=== PATIENT | female | born 1980 | race Caucasian/White ===

== ENCOUNTER 2017-11-26 05:15 | Emergency (ER) | payer OTHER, BC ==
[2017-11-26] MEDS: HYDROmorphONE 1 MG/ML SYG IV ×2 (06:36→09:04)
[2017-11-26] MEDS: SOD CHLORIDE 0.9% 1,000 ML IV ×2 (06:38→06:52)
[2017-11-26] MEDS: ONDANSETRON 4 MG INJ IV ×2 (06:38→06:52)
[2017-11-26] MEDS: morphine 4 MG/ML VIAL IV (06:38)
[2017-11-26 06:52] LABS: ADD MAN DIFF? NO
[2017-11-26 06:57] LABS: BASOPHILS % 0.2 % (0.0-2.0); EOSINOPHILS # 0.1 10^3/ul (0.0-0.5); EOSINOPHILS % 0.6 % (0.0-7.0); HEMOGLOBIN 13.8 g/dl (12.0-16.0); LYMPHOCYTES # 3.4 10^3/ul (0.8-2.9); LYMPHOCYTES % 28.5 % (15.0-51.0); MEAN CORPUSCULAR HEMOGLOBIN 31.2 pg (29.0-33.0); MEAN CORPUSCULAR HGB CONC 32.1 g/dl (32.0-37.0); MEAN CORPUSCULAR VOLUME 97.1 fl (82.0-101.0); MEAN PLATELET VOLUME 10.4 fl (7.4-10.4); MONOCYTE # 0.4 10^3/ul (0.3-0.9); NEUTROPHIL # 8.1 10^3/ul (1.6-7.5); NEUTROPHILS % 67.3 % (39.0-77.0); PLATELET COUNT 317 10^3/UL (140-415); RED BLOOD COUNT 4.43 10^6/ul (4.20-5.40); RED CELL DISTRIBUTION WIDTH 12.8 % (11.5-14.5)
[2017-11-26 07:19] LABS: ALANINE AMINOTRANSFERASE 30 IU/L (13-69); ALBUMIN 3.9 g/dl (3.3-4.9); ALBUMIN/GLOBULIN RATIO 1.34; ALKALINE PHOSPHATASE 68 IU/L (42-121); ANION GAP 8 (8-16); ASPARTATE AMINO TRANSFERASE 26 IU/L (15-46); BILIRUBIN,INDIRECT 0.4 mg/dl (0-1.1); BILIRUBIN,TOTAL 0.4 mg/dl (0.2-1.3); BLOOD UREA NITROGEN 3 mg/dl (7-20); CARBON DIOXIDE 30 mmol/L (21-31); CHLORIDE 105 mmol/L (97-110); CREATININE 0.47 mg/dl (0.44-1.00); GLUCOSE 153 mg/dl (70-220); LIPASE 55 U/L (23-300); POTASSIUM 4.1 mmol/L (3.5-5.1); SODIUM 139 mmol/L (135-144); TOTAL PROTEIN 6.8 g/dl (6.1-8.1)
== END 2017-11-26 09:40 | disposition home or self-care (01) ==
LOC: E/R 05:15
DX: K80.20 Calculus of gallbladder without cholecystitis without obstruction (principal); F17.210 Nicotine dependence, cigarettes, uncomplicated; Z85.41 Personal history of malignant neoplasm of cervix uteri
CPT/HCPCS: 36415; 76705; 80053; 81025; 83690; 85025; 96374; 96375; 99285-25

== ENCOUNTER 2018-02-11 09:25 | Emergency (ER) | payer OTHER ==
[2018-02-11 10:09] LABS: URINE BLOOD (Dip) POC Negative (NEGATIVE); URINE GLUCOSE (Dip) POC Negative (NEGATIVE); URINE KETONES (Dip) POC Negative (NEGATIVE); URINE LEUKOCYTE EST (Dip) POC Negative (NEGATIVE); URINE NITRITE (Dip) POC Negative (NEGATIVE); URINE TOTAL PROTEIN POC Negative (NEGATIVE)
[2018-02-11 10:09] LABS: URINE PH (Dip) POC 5.5 (5.0-8.5)
[2018-02-11] MEDS: ACETAMINOPHEN 325 MG TAB PO (10:11)
[2018-02-11] MEDS: SOD CHLORIDE 0.9% 1,000 ML IV (10:12)
[2018-02-11 10:23] LABS: ADD MAN DIFF? NO
[2018-02-11 10:34] LABS: BASOPHILS % 0.2 % (0.0-2.0); EOSINOPHILS # 0.1 10^3/ul (0.0-0.5); HEMATOCRIT 39.7 % (37.0-47.0); LYMPHOCYTES # 3.1 10^3/ul (0.8-2.9); MEAN CORPUSCULAR HEMOGLOBIN 31.6 pg (29.0-33.0); MEAN CORPUSCULAR HGB CONC 32.7 g/dl (32.0-37.0); MEAN CORPUSCULAR VOLUME 96.6 fl (82.0-101.0); MEAN PLATELET VOLUME 10.6 fl (7.4-10.4); MONOCYTE # 0.4 10^3/ul (0.3-0.9); MONOCYTES % 3.5 % (0.0-11.0); NEUTROPHIL # 8.7 10^3/ul (1.6-7.5); NEUTROPHILS % 69.7 % (39.0-77.0); PLATELET COUNT 347 10^3/UL (140-415); RED BLOOD COUNT 4.11 10^6/ul (4.20-5.40); RED CELL DISTRIBUTION WIDTH 12.3 % (11.5-14.5)
[2018-02-11 10:34] LABS: WHITE BLOOD COUNT 12.4 10^3/ul (4.8-10.8)
[2018-02-11 10:58] LABS: ALANINE AMINOTRANSFERASE 19 IU/L (13-69); ALBUMIN 3.5 g/dl (3.3-4.9); ALKALINE PHOSPHATASE 64 IU/L (42-121); ANION GAP 11 (8-16); ASPARTATE AMINO TRANSFERASE 20 IU/L (15-46); BILIRUBIN,INDIRECT 0.2 mg/dl (0-1.1); BILIRUBIN,TOTAL 0.2 mg/dl (0.2-1.3); BLOOD UREA NITROGEN 10 mg/dl (7-20); CALCIUM 9.8 mg/dl (8.4-10.2); CARBON DIOXIDE 28 mmol/L (21-31); CHLORIDE 102 mmol/L (97-110); CREATININE 0.45 mg/dl (0.44-1.00); GLUCOSE 114 mg/dl (70-220); POTASSIUM 3.9 mmol/L (3.5-5.1); SODIUM 137 mmol/L (135-144)
== END 2018-02-11 12:16 | disposition home or self-care (01) ==
LOC: FTE 09:25
DX: O99.611 Diseases of the digestive system complicating pregnancy, first trimester (principal); K80.20 Calculus of gallbladder without cholecystitis without obstruction; O99.331 Smoking (tobacco) complicating pregnancy, first trimester; F17.210 Nicotine dependence, cigarettes, uncomplicated; Z3A.10 10 weeks gestation of pregnancy; Z85.41 Personal history of malignant neoplasm of cervix uteri
CPT/HCPCS: 36415; 76705; 76801; 80053; 81003; 81025; 84702; 85025; 96360; 99285-25

== ENCOUNTER 2018-08-21 12:54 | Observation (INO) | payer OTHER ==
[2018-08-21 13:57] LABS: ADD UMIC NO; UR ASCORBIC ACID NEGATIVE (NEGATIVE); UR BACTERIA FEW /HPF (NONE SEEN); UR BILIRUBIN (Dip) NEGATIVE (NEGATIVE); UR BLOOD (Dip) NEGATIVE (NEGATIVE); UR CLARITY SLIGHTLY CLOUDY (CLEAR); UR COLOR YELLOW (YELLOW); UR GLUCOSE (Dip) NEGATIVE (NEGATIVE); UR KETONES (Dip) NEGATIVE (NEGATIVE); UR LEUKOCYTE ESTERASE (Dip) NEGATIVE Leu/ul (NEGATIVE); UR NITRITE (Dip) NEGATIVE (NEGATIVE); UR RBC 1 /HPF (0-5); UR SQUAMOUS EPITHELIAL CELL FEW /HPF (FEW); UR TOTAL PROTEIN (Dip) NEGATIVE (NEGATIVE); UR UROBILINOGEN (Dip) NEGATIVE (NEGATIVE); UR WBC 2 /HPF (0-5)
[2018-08-21 15:57] LABS: ADD MAN DIFF? NO
[2018-08-21 16:00] LABS: BASOPHILS % 0.2 % (0.0-2.0); EOSINOPHILS # 0.1 10^3/ul (0.0-0.5); EOSINOPHILS % 0.7 % (0.0-7.0); HEMATOCRIT 33.8 % (37.0-47.0); HEMOGLOBIN 11.2 g/dl (12.0-16.0); LYMPHOCYTES # 2.6 10^3/ul (0.8-2.9); LYMPHOCYTES % 18.8 % (15.0-51.0); MEAN CORPUSCULAR HEMOGLOBIN 31.7 pg (29.0-33.0); MEAN CORPUSCULAR HGB CONC 33.1 g/dl (32.0-37.0); MEAN CORPUSCULAR VOLUME 95.8 fl (82.0-101.0); MEAN PLATELET VOLUME 10.6 fl (7.4-10.4); MONOCYTE # 0.5 10^3/ul (0.3-0.9); MONOCYTES % 3.7 % (0.0-11.0); NEUTROPHIL # 10.4 10^3/ul (1.6-7.5); NEUTROPHILS % 75.7 % (39.0-77.0); PLATELET COUNT 283 10^3/UL (140-415); RED BLOOD COUNT 3.53 10^6/ul (4.20-5.40); RED CELL DISTRIBUTION WIDTH 12.9 % (11.5-14.5)
[2018-08-21 16:00] LABS: WHITE BLOOD COUNT 13.8 10^3/ul (4.8-10.8)
[2018-08-21 16:18] LABS: ALANINE AMINOTRANSFERASE 13 IU/L (13-69); ALBUMIN 3.3 g/dl (3.3-4.9); ALKALINE PHOSPHATASE 126 IU/L (42-121); ANION GAP 7 (5-13); ASPARTATE AMINO TRANSFERASE 17 IU/L (15-46); BILIRUBIN,INDIRECT 0.2 mg/dl (0-1.1); BILIRUBIN,TOTAL 0.2 mg/dl (0.2-1.3); BLOOD UREA NITROGEN 6 mg/dl (7-20); CALCIUM 9.2 mg/dl (8.4-10.2); CARBON DIOXIDE 24 mmol/L (21-31); CHLORIDE 106 mmol/L (97-110); Estimated GFR > 60 mL/min (>60); GLUCOSE 97 mg/dl (70-220); POTASSIUM 3.7 mmol/L (3.5-5.1); SODIUM 137 mmol/L (135-144); TOTAL PROTEIN 6.3 g/dl (6.1-8.1); URIC ACID 4.8 mg/dl (3.1-7.9)
[2018-08-21 16:19] LABS: INR 0.89; PROTIME 12.2 Sec (11.9-14.9)
[2018-08-21 16:20] LABS: PARTIAL THROMBOPLASTIN TIME 25.9 Sec (23.0-35.0)
[2018-08-21] MEDS: NIFEdipine 10 MG CAP PO (17:21)
[2018-08-21] MEDS: metFORMIN 500 MG TAB PO (19:23)
[2018-08-21] MEDS ORDERED: LACTATED RINGER'S 1,000 ML IV ×2 (20:17)
[2018-08-21] MEDS ORDERED: BUTORPHANOL 2 MG INJ IV ×2 (20:30)
[2018-08-21] MEDS ORDERED: MISOPROSTOL 200 MCG TAB PR (20:30)
[2018-08-21] MEDS ORDERED: METHYLERGONOVINE 0.2 MG INJ IM (20:30)
[2018-08-21] MEDS ORDERED: CARBOPROST 250 MCG INJ IM (20:30)
[2018-08-21] MEDS ORDERED: LIDOCAINE 1% (MPF) 30 ML INJ INJ (20:30)
[2018-08-21] MEDS ORDERED: MISOPROSTOL 50 MCG CAPSULE VAG (20:30)
[2018-08-21] MEDS ORDERED: IBUPROFEN 600 MG TAB PO (20:30)
[2018-08-21] MEDS ORDERED: OXYTOCIN 30 UNITS/LR 500 ML IV ×3 (20:30)
[2018-08-21] MEDS: DEXTROSE 5%-LR 1,000 ML IV (20:53)
[2018-08-21] MEDS: MISOPROSTOL 50 MCG CAPSULE PO (21:09)
[2018-08-21] MEDS: LACTATED RINGER'S 1,000 ML IV (21:11)
[2018-08-21] MEDS ORDERED: CA GLUCONATE (GM) 10% 10ML INJ IV (22:00)
[2018-08-21 22:13] LABS: HEPATITIS B SURFACE ANTIGEN NEGATIVE (NEGATIVE)
[2018-08-21] MEDS ORDERED: MAGNESIUM SULFATE 4 GM/100 ML 100 ML (22:15)
[2018-08-21] MEDS: MAGNESIUM SULFATE 4 GM/100 ML 100 ML IV (22:30)
[2018-08-21] MEDS: MAGNESIUM SULFATE 20 GM/500 ML 500 ML IV (22:59)
[2018-08-21] MEDS ORDERED: DEXTROSE 50% 50 ML SYRINGE IV ×2 (23:45)
[2018-08-21] MEDS ORDERED: GLUCOSE GEL 15 GRAM TUBE BUCCAL (23:45)
[2018-08-21] MEDS ORDERED: GLUCOSE GEL 15 GRAM TUBE PO ×2 (23:45)
[2018-08-21] MEDS ORDERED: GLUCAGON 1 MG INJ IM (23:45)
[2018-08-22] MEDS: LACTATED RINGER'S 1,000 ML IV (01:11)
[2018-08-22] MEDS: MISOPROSTOL 50 MCG CAPSULE PO ×2 (01:21→06:55)
[2018-08-22] MEDS: DEXTROSE 5%-LR 1,000 ML IV (04:53)
[2018-08-22] MEDS: ACETAMINOPHEN 325 MG TAB PO (06:20)
[2018-08-22 07:26] LABS: MAGNESIUM 4.5 mg/dl (1.7-2.5)
[2018-08-22] MEDS: INSULIN ASPART [NOVOLOG] 3 ML PEN SC (07:35)
[2018-08-22] MEDS ORDERED: FENTAnyl 50 MCG/ML VIAL (07:54)
[2018-08-22] MEDS ORDERED: FENTAnyl 2MCG/ML-ROPIV 0.2% 100 ML BAG EPI (08:00)
[2018-08-22] MEDS ORDERED: NALOXONE (0.4 MG/ML) INJ IV (08:00)
[2018-08-22] MEDS: MAGNESIUM SULFATE 20 GM/500 ML 500 ML IV (09:05)
[2018-08-22 11:20] LABS: AMPHETAMINE/METHAMPHETAMINE Negative (NEGATIVE); BARBITURATES Negative (NEGATIVE); BENZODIAZEPINES Negative (NEGATIVE); CANNABINOIDS Negative (NEGATIVE); COCAINE Negative (NEGATIVE); OPIATES Negative (NEGATIVE)
[2018-08-22 18:41] LABS: RAPID PLASMA REAGIN NONREACTIVE (NR)
== END 2018-08-22 10:20 | disposition left against medical advice (07) ==
LOC: OBT 12:54 → L-D 12:54 → OBT 17:55 → L-D 17:55
DX: O13.3 Gestational [pregnancy-induced] hypertension without significant proteinuria, third trimester (principal); Z3A.37 37 weeks gestation of pregnancy
CPT/HCPCS: 76815; 76818; 80053; 80307; 81001; 81003; 82962; 83735; 84560; 85025; 85610; 85730; 86592; 86850; 86900; 86901; 87340; 99217